=== PATIENT | male | born 1980 | race African-American/Black ===

== ENCOUNTER 2022-04-17 07:58 | Outpatient (CLI) | payer SELFPAY | END 2022-04-17 07:59 | disposition home or self-care (01) | LOC: WOUND 08:02 | PROVIDERS: Visit Provider Surgery | DX: E11.621 Type 2 diabetes mellitus with foot ulcer (principal); E08.40 Diabetes mellitus due to underlying condition with diabetic neuropathy, unspecified; L97.512 Non-pressure chronic ulcer of other part of right foot with fat layer exposed; Z79.4 Long term (current) use of insulin | CPT/HCPCS: 97597; 99203 ==

== ENCOUNTER 2022-04-24 08:06 | Outpatient (CLI) | payer SELFPAY | END 2022-04-24 08:07 | disposition home or self-care (01) | LOC: WOUND 08:06 | PROVIDERS: Visit Provider Surgery | DX: E11.621 Type 2 diabetes mellitus with foot ulcer (principal); L97.512 Non-pressure chronic ulcer of other part of right foot with fat layer exposed; Z79.4 Long term (current) use of insulin | CPT/HCPCS: 97597 ==

== ENCOUNTER 2022-05-08 08:01 | Outpatient (CLI) | payer SELFPAY | END 2022-05-08 08:02 | disposition home or self-care (01) | LOC: WOUND 08:01 | PROVIDERS: Visit Provider Surgery | DX: E11.621 Type 2 diabetes mellitus with foot ulcer (principal); L97.512 Non-pressure chronic ulcer of other part of right foot with fat layer exposed; Z79.4 Long term (current) use of insulin | CPT/HCPCS: 11043 ==

== ENCOUNTER 2022-11-27 12:19 | Outpatient (CLI) | payer BC, SELFPAY ==
[2022-11-27 13:37] LABS: Basophils Absolute Auto 0.05 K/uL (0.00-0.30); Basophils Percent Auto 0.5 % (0.0-3.0); Eosinophils Absolute Auto 0.27 K/uL (0.00-0.50); Hematocrit 38.9 % (37.0-53.0); Hemoglobin* 13.1 gm/dL (13.5-17.5); Immature Granulocytes Abs Auto 0.01 K/uL (0.00-0.30); Immature Granulocytes Pct Auto 0.1 %; Lymphocytes Absolute Auto 2.19 K/uL (0.90-2.90); Mean Corpuscular HGB Conc 34 gm/dL (32-36); Mean Corpuscular Hemoglobin 29 pg (26-34); Mean Corpuscular Volume 87 fL (80-100); Monocytes Percent Auto 7.1 % (0.0-11.0); Neutrophils Absolute Auto 5.96 K/uL (1.7-7.0); Neutrophils Percent Auto 65.3 % (42.0-72.0); Platelet Count* 258 K/uL (140-440); RDW Coefficient of Variation % 14.3 % (11.5-15.5); Red Blood Count 4.48 m/uL (4.30-5.90); White Blood Count* 9.13 K/uL (4.50-11.00)
[2022-11-27 13:50] LABS: Slide Review Reflex No
[2022-11-27 14:04] LABS: Chloride* 110 mmol/L (96-114); Potassium* 5.1 mmol/L (3.6-5.1); Sodium* 135 mmol/L (135-149)
[2022-11-27 14:07] LABS: Blood Urea Nitrogen* 33 mg/dL (5-24); Carbon Dioxide* 17 mmol/L (20-32); Cholesterol* 140 mg/dL (90-199); Creatinine* 1.9 mg/dL (0.5-1.5); Estimated Glomerular Filt Rate 45 ml/min
[2022-11-27 14:08] LABS: Calcium* 9.4 mg/dL (8.4-10.6); HDL Cholesterol* 47 mg/dL (>=40); LDL Cholesterol Calculated 57 mg/dL (<100); Triglycerides* 182 mg/dL (40-149)
[2022-11-27 14:56] LABS: Glucose* 409 mg/dL (60-115)
== END 2022-11-27 12:20 | disposition home or self-care (01) ==
PROVIDERS: PCP Family Medicine; Visit Provider Family Medicine
DX: I10 Essential (primary) hypertension (principal); E78.5 Hyperlipidemia, unspecified; E11.40 Type 2 diabetes mellitus with diabetic neuropathy, unspecified
CPT/HCPCS: 80048; 80061; 84443; 85025